=== PATIENT | female | born 1980 | race Caucasian/White ===

== ENCOUNTER 2021-01-01 10:15 | Inpatient (IN) | payer OTHER ==
[~2021-01-01] VITALS: Ht 170.2 cm; Wt 132.4 kg
[~2021-01-01 10:15] MED LIST: CIPROFLOXACIN500 M1 PO; DIFLUCAN150 MG PO; HYDROCODON-ACE1 EAC5; NOHOMEMEDICATIONS; NORCO 5-325 TA1 EACH PO; PENICILLIN V P500 MG PO; TRINATE TABLET1 TAB PO
[2021-01-01 10:27] VITALS: BP 148/110
[2021-01-01] MEDS ORDERED: SUBOXONE 8 MG-1 EAC3 SUBLING (10:31)
[2021-01-01] MEDS ORDERED: ZOLOFT100 MG PO (10:31)
[2021-01-01 11:07] LABS: ABSOLUTE EOSINOPHILS 0.2 thou/uL (0.0-0.7); ABSOLUTE LYMPHOCYTES 1.4 thou/uL (0.8-5.3); ABSOLUTE MONOCYTES 0.7 thou/uL (0.0-1.2); ABSOLUTE NEUTROPHILS 8.9 thou/uL (1.6-8.1); BASOPHILS 0.4 %; HEMATOCRIT 41.9 % (37.0-47.0); HEMOGLOBIN 14.7 gm/dL (12.0-15.0); LYMPHOCYTES 12.4 %; MCH 33.2 pg (26.0-34.0); MCV 94.6 fL (80.0-100.0); MPV 7.3 fl. (7.2-11.1); NUCLEATED RBCS 0 /100WBC; PLATELET COUNT* 396 thou/uL (150-400); POLYS 79.2 %; RBC 4.43 mil/uL (4.20-5.00); RDW-CV 12.2 % (10.5-14.5); WBC 11.2 thou/uL (4.0-11.0)
[2021-01-01 11:14] LABS: CALCIUM 8.7 mg/dL (8.5-10.1); CREATININE 0.7 mg/dL (0.6-1.3); POTASSIUM 3.5 mmol/L (3.5-5.1)
[2021-01-01 11:18] LABS: ALBUMIN 3.5 g/dL (3.4-5.0); TOTAL BILIRUBIN 0.5 mg/dL (<0.1-1.0); TOTAL PROTEIN 7.5 g/dL (6.4-8.2)
--- NOTE | 2021-01-01 12:52 | EKG ---
[place] [address] ELECTROCARDIOGRAM REPORT Name: COURTNEY CURTIS Room: [facility]#: [id number] Admission: 01/01/21 Attend Phys: Discharge: Date of : 76 Date of Service: 01/01/21 1046 Report #: [id number] THIS REPORT FOR: //name// [facility] ED Test Date: 2021-01-01 Test Time: 10:46:45 Pat Name: COURTNEY CURTIS Department: Room: Gender: F [employer] Sp[employer]er: CD : 1980 Requested By: Mc Gallo Order Number: [id number] MD: Herminio Su Measurements Intervals [place] Rate: 75 P: 34 MS: 151 QRS: -4 QRSD: 91 T: 15 QT: 385 QTc: 430 Interpretive Statements Sinus rhythm No previous ECG available for comparison Electronically Signed On 01-01-2021 12:52:46 CDT by Herminio Su [email or web address] <ELECTRONICALLY SIGNED> By: Herminio Su MD, [facility] 01/01/21 1252 1046 1046 Herminio Su MD, FACC /EPI
[2021-01-01 15:51] LABS: CHOLESTEROL 144 mg/dL (<200); HDL CHOLESTEROL 37 mg/dL (>40); LDL CHOLESTEROL 87 mg/dL (<100); SERUM ASSESSMENT Clear; TC:HDL 3.9 Ratio (Not establshd); TRIGLYCERIDE 101 mg/dL (<150); VLDL 20 mg/dL (<40)
--- NOTE | 2021-01-01 16:47 | EKG ---
[place] [address] ELECTROCARDIOGRAM REPORT Name: COURTNEY CURTIS Room: [place] [address] ADM IN ..#: [id number] Admission: 01/01/21 Attend Phys: Arthur Higgins Discharge: Date of : 76 Date of Service: 01/01/21 1359 Report #: [id number] THIS REPORT FOR: //name// [facility] ED Test Date: 2021-01-01 Test Time: 13:59:38 Pat Name: COURTNEY CURTIS Department: Room: [facility] Gender: F [employer]: : 1980 Requested By: Mc Gallo Order Number: [id number] MD: Herminio Su Measurements Intervals [place] Rate: 77 P: 52 MO: 166 QRS: -3 QRSD: 93 T: 15 QT: 392 QTc: 444 Interpretive Statements Sinus rhythm Low voltage, precordial leads Compared to ECG 01/01/2021 10:46:45 Low QRS voltage now present Electronically Signed On 01-01-2021 16:47:11 CDT by Herminio Su [email or web address] <ELECTRONICALLY SIGNED> By: Herminio Su MD, FAC 01/01/21 1647 1359 1359 Herminio Su MD, FAC /EPI
[2021-01-01 18:11] VITALS: BP 142/70
== END 2021-01-01 18:15 | disposition left against medical advice (07) | DRG 392 ==
LOC: M.ERS 10:15 → M.TBA-ER 13:42
PROVIDERS: Emergency Medicine Emergency Medical Services; Registered Nurse; ADMIT Internal Medicine; ATTEND Internal Medicine
DX: K52.9 Noninfective gastroenteritis and colitis, unspecified (principal); Z68.42 Body mass index [BMI] 45.0-49.9, adult; F32.9 Major depressive disorder, single episode, unspecified; J98.01 Acute bronchospasm; E66.01 Morbid (severe) obesity due to excess calories; R77.8 Other specified abnormalities of plasma proteins; K29.70 Gastritis, unspecified, without bleeding; E66.9 Obesity, unspecified; F17.210 Nicotine dependence, cigarettes, uncomplicated; Z20.822 Contact with and (suspected) exposure to COVID-19; Z90.49 Acquired absence of other specified parts of digestive tract; Z86.16 Personal history of COVID-19; Z79.899 Other long term (current) drug therapy